=== PATIENT | female | born 1950 | race Caucasian/White ===

== ENCOUNTER 2017-08-24 04:52 | Inpatient (IN) | payer OTHER ==
[~2017-08-24] VITALS: Ht 154.9 cm; Wt 61.2 kg
[2017-08-24] MEDS ORDERED: LIPITOR20 MG (05:07)
[2017-08-24] MEDS ORDERED: ATACAND32 MG (05:07)
[2017-08-24] MEDS ORDERED: ELIQUIS5 MG (05:08)
[2017-08-24] MEDS ORDERED: AMBIEN5 MG (05:08)
[2017-08-31] MEDS ORDERED: ELIQUIS5 MG PO (17:53)
[2017-08-31] MEDS ORDERED: NORVASC2.5 M1 PO (17:53)
[2017-08-31] MEDS ORDERED: ZOLPIDEM TARTRAT5 MG PO (17:53)
[2017-08-31] MEDS ORDERED: CIPRO500 MG PO (17:53)
[2017-08-31] MEDS ORDERED: LIPITOR20 MG PO (17:53)
[2017-08-31] MEDS ORDERED: ATACAND16 MG PO (17:53)
[2017-08-31] MEDS ORDERED: FLAGYL500MG PO (17:53)
[2017-08-31] MEDS ORDERED: ZANTAC150 MG PO (17:53)
== END 2017-08-31 18:03 | disposition home or self-care (01) | DRG 392 ==
LOC: ER 04:52 → MEDI 17:24 → MEDJ 08-29 12:44
PROC: BW21ZZZ Computerized Tomography (CT Scan) of Abdomen and Pelvis (ICD-10-PCS; principal; 2017-08-24)
DX: K57.32 Diverticulitis of large intestine without perforation or abscess without bleeding (principal); Z88.0 Allergy status to penicillin
CPT/HCPCS: 240

== ENCOUNTER 2017-10-05 11:12 | Inpatient (IN) | payer OTHER ==
[~2017-10-05] VITALS: Ht 154.9 cm; Wt 59.9 kg
[~2017-10-05 11:12] MED LIST: AMBIEN5 MG; ATACAND16 MG PO; ATACAND32 MG; CIPRO500 MG PO; ELIQUIS5 MG; ELIQUIS5 MG PO; FLAGYL500MG PO; LIPITOR20 MG; LIPITOR20 MG PO; NORVASC2.5 M1 PO; ZANTAC150 MG PO; ZOLPIDEM TARTRAT5 MG PO
== END 2017-10-30 19:32 | disposition home or self-care (01) | DRG 392 ==
LOC: ER 11:12 → MEDJ 10-06 09:57
PROC: BW40ZZZ Ultrasonography of Abdomen (ICD-10-PCS; 2017-10-06)
PROC: B54DZZZ Ultrasonography of Bilateral Lower Extremity Veins (ICD-10-PCS; 2017-10-07)
PROC: B246ZZZ Ultrasonography of Right and Left Heart (ICD-10-PCS; 2017-10-07)
PROC: 02HV33Z Insertion of Infusion Device into Superior Vena Cava, Percutaneous Approach (ICD-10-PCS; 2017-10-07)
PROC: 3E0436Z Introduction of Nutritional Substance into Central Vein, Percutaneous Approach (ICD-10-PCS; 2017-10-07)
PROC: BW21YZZ Computerized Tomography (CT Scan) of Abdomen and Pelvis using Other Contrast (ICD-10-PCS; 2017-10-12)
PROC: 0W9G30Z Drainage of Peritoneal Cavity with Drainage Device, Percutaneous Approach (ICD-10-PCS; principal; 2017-10-15)
PROC: BW25Y0Z Computerized Tomography (CT Scan) of Chest, Abdomen and Pelvis using Other Contrast, Unenhanced and Enhanced (ICD-10-PCS; 2017-10-21)
PROC: BW25Y0Z Computerized Tomography (CT Scan) of Chest, Abdomen and Pelvis using Other Contrast, Unenhanced and Enhanced (ICD-10-PCS; 2017-10-29)
DX: K57.20 Diverticulitis of large intestine with perforation and abscess without bleeding (principal); B37.89 Other sites of candidiasis; L02.211 Cutaneous abscess of abdominal wall; L03.311 Cellulitis of abdominal wall; K63.2 Fistula of intestine; Z88.0 Allergy status to penicillin; I10 Essential (primary) hypertension; I87.2 Venous insufficiency (chronic) (peripheral); Z79.01 Long term (current) use of anticoagulants; Z86.718 Personal history of other venous thrombosis and embolism; E87.6 Hypokalemia; B96.29 Other Escherichia coli [E. coli] as the cause of diseases classified elsewhere; B95.2 Enterococcus as the cause of diseases classified elsewhere

== ENCOUNTER 2017-12-09 15:44 | Inpatient (IN) | payer OTHER ==
[~2017-12-09] VITALS: Ht 154.9 cm; Wt 59.0 kg
[2017-12-28] MEDS ORDERED: AMBIEN5 MG PO (10:36)
[2017-12-28] MEDS ORDERED: BIOTIN10 MG PO (10:37)
[2017-12-28] MEDS ORDERED: ZINC LOZENGES1 EACH PO ×2 (10:37→10:39)
[2017-12-28] MEDS ORDERED: VIT D PO (10:38)
[2017-12-28] MEDS ORDERED: TUMERERIC PO (10:39)
[2017-12-28] MEDS ORDERED: OMEGA 3 1,0001 EACH PO (10:40)
[2017-12-28] MEDS ORDERED: PROBIOTIC1 EAC3 PO (10:40)
[2018-01-05] MEDS ORDERED: VITAMIN D10000 UNIT PO (10:48)
[2018-01-08] MEDS ORDERED: ULTRACET PO (10:12)
[2018-01-08] MEDS ORDERED: KETO10TA2 PO (10:12)
== END 2018-01-08 12:05 | disposition home or self-care (01) | DRG 331 ==
LOC: SURH 01-04 09:15 → SURG 01-04 20:27
PROVIDERS: Surgery
PROC: 0DTP4ZZ Resection of Rectum, Percutaneous Endoscopic Approach (ICD-10-PCS; 2018-01-04)
PROC: 0DJD8ZZ Inspection of Lower Intestinal Tract, Via Natural or Artificial Opening Endoscopic (ICD-10-PCS; 2018-01-04)
PROC: 0DTN4ZZ Resection of Sigmoid Colon, Percutaneous Endoscopic Approach (ICD-10-PCS; principal; 2018-01-04 14:00)
DX: K57.20 Diverticulitis of large intestine with perforation and abscess without bleeding (principal); I10 Essential (primary) hypertension; Z88.0 Allergy status to penicillin

== ENCOUNTER 2018-10-12 08:27 | Day surgery (SDC) | payer OTHER ==
[~2018-10-12 08:27] MED LIST changes: +AMBIEN5 MG PO; +BIOTIN10 MG PO; +KETO10TA2 PO; +OMEGA 3 1,0001 EACH PO; +PROBIOTIC1 EAC3 PO; +TUMERERIC PO; +ULTRACET PO; +VIT D PO; +VITAMIN D10000 UNIT PO; +ZINC LOZENGES1 EACH PO
== END 2018-10-12 11:37 | disposition home or self-care (01) ==
LOC: AMB-ENDOS 08:27
DX: D12.4 Benign neoplasm of descending colon (principal); K64.8 Other hemorrhoids